=== PATIENT | male | born 2000 | race Caucasian/White ===

== ENCOUNTER 2023-02-24 16:51 | Emergency (ER) | payer OTHER, SELFPAY ==
[2023-02-24 16:52] VITALS: BP 160/109; PULSE 86; RESP 18; TEMP 36.8; O2SAT 99; BMI 28.2
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
--- NOTE | 2023-02-24 17:17 | PC.NURSE ---
visual acuity screening performed, 20/200 noted in L eye only, and 20/40 noted in R eye only and both eyes open. er aware.
--- NOTE | 2023-02-24 17:29 | PC.NURSE ---
er at bedside
[2023-02-24 17:30] VITALS: BP 159/98; PULSE 87; O2SAT 97
--- NOTE | 2023-02-24 17:34 | PC.NURSE ---
speaking to [facility] at this time
--- NOTE | 2023-02-24 17:39 | PC.NURSE ---
DR KANG SPEAKING WITH [facility]
[2023-02-24 17:45] VITALS: BP 145/98; PULSE 82; O2SAT 97
[2023-02-24 18:17] VITALS: BP 149/108; PULSE 93; RESP 18; TEMP 36.8; O2SAT 99
== END 2023-02-24 18:18 ==
PROVIDERS: Emergency Provider Emergency Medicine
DX: S05.92XA Unspecified injury of left eye and orbit, initial encounter (principal); H21.02 Hyphema, left eye; F17.210 Nicotine dependence, cigarettes, uncomplicated; W44.8XXA Other foreign body entering into or through a natural orifice, initial encounter
CPT/HCPCS: 90715; 96372; 99285

== ENCOUNTER 2023-09-08 22:29 | Emergency (ER) | payer OTHER, SELFPAY ==
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
[2023-09-08 22:41] VITALS: BP 158/92; PULSE 97; RESP 18; TEMP 36.7; O2SAT 98
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
[2023-09-08] MEDS: MORPHINE 4MG/ML SYRINGE 4 MG IV (23:07)
[2023-09-08 23:11] VITALS: BP 155/114; PULSE 80; O2SAT 99
[2023-09-08 23:31] VITALS: BP 187/128; PULSE 88; O2SAT 98
[2023-09-08] MEDS: KETOROLAC 30MG/ML VIAL 30 MG IV (23:34)
[2023-09-08] MEDS: ACETAMINOPHEN 500MG TAB 1000 MG PO (23:34)
[2023-09-09] VITALS: BP 174/114; PULSE 84; O2SAT 99
[2023-09-09 00:33] VITALS: BP 154/114; PULSE 78; RESP 18; TEMP 36.6; O2SAT 98
== END 2023-09-09 00:35 | disposition home or self-care (01) ==
PROVIDERS: Emergency Provider Emergency Medicine
DX: S43.109A Unspecified dislocation of unspecified acromioclavicular joint, initial encounter (principal); V86.59XA Driver of other special all-terrain or other off-road motor vehicle injured in nontraffic accident, initial encounter; M25.511 Pain in right shoulder; F17.210 Nicotine dependence, cigarettes, uncomplicated
CPT/HCPCS: 71045; 72170; 73000; 73030; 96374; 96375; 99285

== ENCOUNTER → 2023-09-24 10:52 | Day surgery (SDC) | payer OTHER, SELFPAY ==
[2023-09-19 16:30] VITALS: BMI 27.4
[2023-09-24 11:14] VITALS: BP 159/102; PULSE 72; RESP 18; TEMP 36.3; O2SAT 98
--- NOTE | 2023-09-24 11:53 | SUR.PREOP ---
Per MD Gutierrez, surgery to be cancelled d/t pt no longer having as many issues with shoulder. D/t this, surgery not warranted. IV taken out with catheter intact. Pt to follow up with MD Gutierrez in (2) weeks.
== END | disposition home or self-care (01) ==
PROVIDERS: Visit Provider Orthopaedic Surgery
DX: Z53.09 Procedure and treatment not carried out because of other contraindication (principal)